=== PATIENT | female | born 1950 | race Caucasian/White ===

== ENCOUNTER 2018-06-07 11:35 | Emergency (ER) | payer OTHER ==
[~2018-06-07] VITALS: Ht 162.6 cm; Wt 104.8 kg
[~2018-06-07 11:35] MED LIST: ALLERGY10 M2 PO; ASPIRIN81 M2 PO; DIOVAN160 MG PO; HYDROCHLOROTHIA25 M1 PO; MAGNESIUM250 M1 PO; NEXIUM 40 MG CA40 M1 PO; POTASSIUM99 M1 PO; PROVENTIL HFA6.7 G1 PO; SOTALOL 120 MG120 M1 PO
[2018-06-07 12:50] LABS: BASOPHILS 0.8 % (0.0-2.0); EOSINOPHILS 2.2 % (0.0-3.0); HEMATOCRIT 41.6 % (37.0-47.0); HEMOGLOBIN 13.7 gm/dL (12.0-15.0); LYMPHOCYTES 11.6 % (24.0-44.0); MCH 28.9 pg (26.0-34.0); MCHC 32.8 g/dL (28.0-37.0); PLATELET COUNT 286 thou/uL (150-400); POLYS 78.4 % (36.0-66.0); RBC 4.73 mil/uL (4.20-5.00); WBC 12.8 thou/uL (4.0-11.0)
[2018-06-07 12:51] LABS: ANION GAP 11 mmol/L (7-16); BUN 16 mg/dL (7-18); CALCIUM 9.6 mg/dL (8.5-10.1); CHLORIDE 104 mmol/L (98-107); CO2 27 mmol/L (21-32); CREATININE 1.1 mg/dL (0.6-1.0); GLUCOSE 109 mg/dL (74-106); POTASSIUM 4.3 mmol/L (3.5-5.1); SODIUM 142 mmol/L (136-145)
[2018-06-07 12:59] LABS: ALBUMIN 3.8 g/dL (3.4-5.0); SGOT 16 U/L (15-37); SGPT 24 U/L (30-65); TOTAL BILIRUBIN 0.5 mg/dL (<0.1-1.0); TOTAL PROTEIN 7.5 g/dL (6.4-8.2); TROPONIN-I <0.06 ng/mL (<0.06)
--- NOTE | 2018-06-07 13:47 | EKG ---
[address] [place] [address] ELECTROCARDIOGRAM REPORT Name: RADHA MCNAMARA Room #: [facility] [id number] ������������������ Admission: 06/07/18 ������������������ Attend Phys: Discharge: ������������������ Date of : 46 Report #: [id number] ����������������������������������������������������������������� [id number] THIS REPORT FOR: //name// [facility] ED Test Date: 2018-06-07 Test Time: 11:50:14 Pat Name: RADHA MCNAMARA Department: Room: Gender: F [employer] Set Up Mechanic: JEREMIAH : 1950 Requested By: Ray Howard Order Number: [id number] MD: Erick Payne Measurements Intervals [place] Rate: 128 P: -54 ND: 67 QRS: 212 QRSD: 85 T: 84 QT: 362 QTc: 529 Interpretive Statements Ventricular-paced complexes No further rhythm analysis attempted due to paced rhythm Compared to ECG 10/18/2013 07:12:17 Paced rhythm now present Electronically Signed On 06-07-2018 13:46:56 CLERK GUIDE by Erick Payne [email or web address] ��������������������������������������������� <ELECTRONICALLY SIGNED> ���������������������������������������� By: Erick Payne MD ��������������������������������������������� 06/07/18 1346 1150 [facility] Erick Payne MD /ASHLEY
[2018-06-07 14:14] LABS: URINE BILIRUBIN NEGATIVE (Negative); URINE BLOOD NEGATIVE (Negative); URINE CLARITY CLEAR; URINE COLOR YELLOW; URINE GLUCOSE-RANDOM* NEGATIVE (Negative); URINE KETONES NEGATIVE (Negative); URINE LEUKOCYTES-REFLEX NEGATIVE (Negative); URINE NITRITE-REFLEX NEGATIVE (Negative); URINE PROTEIN (DIPSTICK) NEGATIVE (Negative); URINE SPECIFIC GRAVITY <= 1.005 (1.005-1.035); URINE UROBILINOGEN 0.2 E.U./dl (0.2-1.0)
[2018-06-07] MEDS ORDERED: BETAPACE AF PO (14:20)
[2018-06-07] MEDS ORDERED: POTASSIUM20 PO (14:20)
[2018-06-07] MEDS ORDERED: PROAIR HFA8.5 GM INH (14:21)
[2018-06-07] MEDS ORDERED: XARELTO20 MG PO (14:21)
[2018-06-07] MEDS ORDERED: PROBIOTIC1 EAC1 PO (14:22)
[2018-06-07] MEDS ORDERED: CALCIUM 600 +1 EAC1 PO (14:22)
[2018-06-07] MEDS ORDERED: COZAAR 25 MG TA25 M1 PO (14:25)
[2018-06-07] MEDS ORDERED: FLAGYL500 M1 PO (14:43)
[2018-06-07] MEDS ORDERED: CIPROFLOXACIN500 M1 PO (14:43)
[2018-06-07 15:06] VITALS: BP 142/83
== END 2018-06-07 15:14 | disposition home or self-care (01) ==
LOC: ER 11:35
PROVIDERS: Emergency Medicine
DX: K57.32 Diverticulitis of large intestine without perforation or abscess without bleeding (principal); I47.1 Supraventricular tachycardia; K21.9 Gastro-esophageal reflux disease without esophagitis; J45.909 Unspecified asthma, uncomplicated; I10 Essential (primary) hypertension; Z90.710 Acquired absence of both cervix and uterus; Z85.828 Personal history of other malignant neoplasm of skin

== ENCOUNTER → 2020-02-25 | Outpatient (CLI) | payer OTHER ==
[~2020-02-25] MED LIST changes: +BETAPACE AF PO; +CALCIUM 600 +1 EAC1 PO; +CIPROFLOXACIN500 M1 PO; +COZAAR 25 MG TA25 M1 PO; +FLAGYL500 M1 PO; +POTASSIUM20 PO; +PROAIR HFA8.5 GM INH; +PROBIOTIC1 EAC1 PO; +XARELTO20 MG PO
[2020-02-25 10:12] LABS: ABSOLUTE NEUTROPHILS 5.6 thou/uL (1.4-8.2); BASOPHILS 2.8 % (0.0-2.0); EOSINOPHILS 4.9 % (0.0-3.0); HEMATOCRIT 35.5 % (37.0-47.0); HEMOGLOBIN 11.1 gm/dL (12.0-15.0); LYMPHOCYTES 12.8 % (24.0-44.0); MCH 25.5 pg (26.0-34.0); MCHC 31.1 g/dL (28.0-37.0); MONOCYTES 6.6 % (1.0-8.0); PLATELET COUNT 363 thou/uL (150-400); POLYS 72.9 % (36.0-66.0); RBC 4.33 mil/uL (4.20-5.00); RDW 18.8 % (10.5-14.5); WBC 7.7 thou/uL (4.0-11.0)
[2020-02-25 10:29] LABS: ALBUMIN 3.7 g/dL (3.4-5.0); CALCIUM 8.9 mg/dL (8.5-10.1); CREATININE 1.2 mg/dL (0.6-1.0); POTASSIUM 4.5 mmol/L (3.5-5.1); TOTAL BILIRUBIN 0.2 mg/dL (0.2-1.0); TOTAL PROTEIN 7.4 g/dL (6.4-8.2)
[2020-02-25 13:12] LABS: ANISOCYTOSIS 1+; PLATELET ESTIMATE NORMAL
== END ==
LOC: CAT 09:08 → LAB 10:01
PROVIDERS: ATTEND Internal Medicine Cardiovascular Disease
DX: Z01.812 Encounter for preprocedural laboratory examination (principal); Z20.828 Contact with and (suspected) exposure to other viral communicable diseases; R91.8 Other nonspecific abnormal finding of lung field; K44.9 Diaphragmatic hernia without obstruction or gangrene; I48.91 Unspecified atrial fibrillation

== ENCOUNTER → 2020-03-01 | Outpatient (CLI) | payer OTHER ==
[~2020-03-01] VITALS: Ht 160 cm; Wt 110.4 kg
[2020-03-01 07:37] VITALS: BP 125/51
[2020-03-01 07:37] LABS: ABSOLUTE NEUTROPHILS 4.6 thou/uL (1.4-8.2); BASOPHILS 1.8 % (0.0-2.0); EOSINOPHILS 4.9 % (0.0-3.0); HEMATOCRIT 33.6 % (37.0-47.0); HEMOGLOBIN 10.7 gm/dL (12.0-15.0); LYMPHOCYTES 16.9 % (24.0-44.0); MCH 26.4 pg (26.0-34.0); MCV 82.5 fL (80.0-100.0); MONOCYTES 6.3 % (1.0-8.0); PLATELET COUNT 318 thou/uL (150-400); POLYS 70.1 % (36.0-66.0); RBC 4.07 mil/uL (4.20-5.00); RDW 19.9 % (10.5-14.5); WBC 6.5 thou/uL (4.0-11.0)
[2020-03-01 07:54] LABS: CALCIUM 9.2 mg/dL (8.5-10.1); CREATININE 1.2 mg/dL (0.6-1.0); POTASSIUM 3.8 mmol/L (3.5-5.1)
[2020-03-01 07:56] LABS: APTT 26.7 Seconds (24.5-32.8); PROTIME 10.2 Seconds (9.3-11.4)
[2020-03-01 08:00] LABS: ALBUMIN 3.3 g/dL (3.4-5.0); TOTAL BILIRUBIN 0.2 mg/dL (0.2-1.0); TOTAL PROTEIN 7.3 g/dL (6.4-8.2)
[2020-03-01 10:47] LABS: ANISOCYTOSIS 1+; OVALOCYTES OCCASIONAL
--- NOTE | 2020-03-02 12:49 | P ---
[facility] [place] [address] PROCEDURE REPORT Name: RADHA MCNAMARA Room #: REG BRYAN GarciaCanelo#: [id number] Admission: 03/01/20 Attend Phys: Skyler Servin MD Discharge: Date of : 46 Report #: [id number] THIS REPORT FOR: cc: Alesha Galdamez MD,Skyler Glover MD, MD ~ CC: Skyler Galdamez DATE OF SERVICE: 03/01/2020 PREOPERATIVE DIAGNOSIS: Atrial fibrillation. POSTOPERATIVE DIAGNOSIS: Atrial fibrillation. PROCEDURES PERFORMED: 1. Atrial fibrillation ablation, CPT code 10145. 2. 3D mapping, CPT code 75167. 3. Intracardiac echo, CPT code 85557. 4. Preprocedural pacemaker reprogramming, CPT code 40276. 5. Post-procedure pacemaker reprogramming, CPT code 74028. 6. Arterial line placement, CPT code 81708. HISTORY: The patient is a 70-year-old with history of paroxysmal atrial fibrillation as well as sick sinus syndrome, status post Biotronik pacemaker implantation, who is here for atrial fibrillation ablation. She has failed sotalol therapy. ANESTHESIA: The patient underwent general anesthesia with no anesthesia related complications. DESCRIPTION OF PROCEDURE: The patient underwent informed consent. We discussed the details of the procedure including the risks, which include but not limited to bleeding, vascular damage, stroke, CT as well as cardiac perforation. She understood these risks and is willing to proceed. The patient was brought to EP laboratory in fasting and sedated state, prepped and draped in a sterile fashion. Prior to initiation of the procedure, I reprogrammed her Biotronik pacemaker to the DDD mode turning off rate response. Next, I obtained access to the right femoral vein x 3, placing 8, 9 and 7-[place] short sheath and obtained access once to the right femoral artery using a 5-[place] short sheath all using the modified Seldinger technique. Next, under fluoroscopy, I placed a decapolar catheter easily in the coronary sinus and ICE catheter in the right atrium. At baseline, the patient was in sinus rhythm with an atrial paced rhythm. Using intracardiac ultrasound, there was evidence of left common ostium and 2 right-sided pulmonary veins. She did have somewhat of [address] [address] PROCEDURE REPORT Name: RADHA MCNAMARA [facility] [id number] Admission: 03/01/20 Attend Phys: Skyler Servin MD Discharge: Date of : 46 Report #: [id number] a flat, pancake, atrium. The intracardiac ultrasound images were merged with the cardiac CT scan. The patient was systemically heparinized and a transseptal was performed using an SL1 sheath and a [place] needle. This was straightforward and I advanced the SL1 sheath in the left atrium and then transitioned over to the cryo sheath and placed the Lasso catheter in left atrium and created detailed 3D voltage map of the left atrium. Next, using the cryoablation balloon, the pulmonary veins were isolated, all 4 veins isolated during the first freeze. The left superior pulmonary vein underwent a 4-minute freeze as this vein isolated within 70 seconds. The left inferior pulmonary vein underwent a 300-second freeze as this vein isolated within 70 seconds. The right superior pulmonary vein underwent a 270-second freeze as this vein isolated within 65 seconds and the right inferior pulmonary vein underwent a 270-second freeze as this vein isolated within 90 seconds. Next, using the Lasso catheter, a repeat voltage map was created and there was evidence of wide circumferential ablation of the pulmonary veins. There were no other inducible arrhythmias during the procedure and therefore the procedure was concluded. The patient had no evidence of pericardial effusion based on intracardiac ultrasound. The patient received systemic protamine and catheters and sheaths were pulled and [id number] suture was performed in the right groin region. The patient awoke neurologically and hemodynamically intact. No complications and no significant bleeding. The pacemaker was programmed back to its nominal settings and the leads were found to be functioning normally. CONCLUSIONS: 1. Successful atrial fibrillation ablation with isolation of the pulmonary veins. 2. Successful pacemaker reprogramming. <ELECTRONICALLY SIGNED> By: Skyler Servin MD 03/02/20 1249 [id number] Skyler Servin MD /nt
== END | disposition home or self-care (01) ==
LOC: CATH 06:32
PROVIDERS: ATTEND Internal Medicine Cardiovascular Disease
DX: I48.91 Unspecified atrial fibrillation (principal); I49.5 Sick sinus syndrome; I10 Essential (primary) hypertension; I73.9 Peripheral vascular disease, unspecified; J45.909 Unspecified asthma, uncomplicated; G47.33 Obstructive sleep apnea (adult) (pediatric); K21.9 Gastro-esophageal reflux disease without esophagitis; E66.9 Obesity, unspecified; Z98.890 Other specified postprocedural states; Z79.899 Other long term (current) drug therapy; Z79.01 Long term (current) use of anticoagulants; Z95.0 Presence of cardiac pacemaker; Z90.710 Acquired absence of both cervix and uterus; Z85.828 Personal history of other malignant neoplasm of skin
CPT/HCPCS: 62110; 62900; 65020; 65040; 70005